=== PATIENT | male | born 1955 | race Caucasian/White ===

== ENCOUNTER 2016-06-10 11:12 | Inpatient (IN) ==
--- NOTE | 2016-06-10 11:46 | PROVIDER DOCUMENTATION ---
HPI-Musculoskeletal Pain/Inj - GENERAL Source: patient, family - HX OF PRESENT ILLNESS-MUSKULOSKELTAL Quality of Pain: reports: aching Severity in ED: moderate Onset/Duration: 1 week ago Timing: still present Any recent injury?: No Locality of Occurance: Home Similar Symptoms Previously?: Yes Recently seen or treated by another doctor?: Yes <Amanda Cruz - Last Filed: 06/10/16 11:41> <Karyn Monique - Last Filed: 06/10/16 13:55> - GENERAL Chief Complaint: Extremity Pain Stated Complaint: POSS BLOOD CLOT Time Seen by Provider: 06/10/16 11:25 - HX OF PRESENT ILLNESS-MUSKULOSKELTAL Nature of Presenting Problem: Reports are from [facility] and are here for 3 months with work.Pt reports before coming her was diagnosed with DVT in right posterior knee and PE in left lung was given heparin and Eloquis and released reports taking eloquis for past 7 day twice a day and states was told if pt had leg swelling,tenderness,redness, or sob to return to er. Pt reports on his way to [place] they stopped about every 1.5 hour so he could get out and walk around. pt has Protein S Deficiency. Pt reports has had right leg swelling and pain x 1 day, Denies cp, sob,vomiting,n. (Amanda Cruz) Review of Systems - Adult - REVIEW OF SYSTEMS - ADULT Constitutional: denies: chills, fever, fatique Eyes: reports: no symptoms reported Ears, Nose, Mouth & Throat: reports: no symptoms reported Cardiovascular: denies: chest pain, heart murmur, irregular heart rate, orthopnea Respiratory: denies: cough, shortness of breath, wheezing Gastrointestinal: reports: no symptoms reported Genitourinary: reports: no symptoms reported Musculoskeletal: reports: see HPI. denies: frequent leg cramps, muscle aches, muscle weakness Integumentary: reports: no symptoms reported Neurological: reports: no symptoms reported Psychiatric: reports: no symptoms reported Endocrine: reports: no symptoms reported Hematologic/Lymphatic: reports: no symptoms reported Allergic/Immunologic: reports: no symptoms reported All Other Systems: Reviewed and Negative <Amanda Cruz - Last Filed: 06/10/16 11:41> Past History - Adult - PAST MEDICAL HISTORY-ADULT Review of Records: reports: Nursing Assessment Review Major Childhood Illnesses: reports: denies history Cardiovascular: reports: hyperlipidemia Endocrine/Immune: reports: other (protein s deficiency) - IMMUNIZATION STATUS Childhood Immunizations: See Nurse Assessment Flu Vaccine: See Nurse Assessment - FAMILY HISTORY Family History: reviewed, not pertinent - SOCIAL HISTORY Smoking: denies <Amanda Cruz - Last Filed: 06/10/16 11:41> Physical Exam-Injury Related - Physical Exam-Injury Related Initial Vital Signs Reviewed: Yes General Appearance: appears well, alert, no apparent distress Eyes: PERRL/EOMI, pink conjunctivae Head, Ears, Nose, Mouth & Throat: normocephalic/atraumatic, moist mucous membranes, normal ENT inspection, TMs normal, pharynx normal Neck: non-tender, full range of motion, supple, normal inspection Respiratory: chest non-tender, lungs clear, normal breath sounds, no pleuratic chest pain, no respiratory distress, no accessory muscle use Cardiovascular: normal peripheral pulses, regular rate, rhythm, no edema, no gallop, no JVD, no murmur Abdominal Exam: normal bowel sounds, non tender, soft, no organomegaly, no pulsatile mass Lymphatic: no adenopathy Back Exam: normal inspection, no CVA tenderness, no vertebral tenderness Extremity: normal range of motion, normal gait, normal inspection, no pedal edema, normal capillary refill, pelvis stable, swelling (right calf), tenderness (right posterior knee and calf) Integumentary: normal color, warm/dry Neurologic: lidar scientist II-XII nml as tested, no motor/sensory deficits Psych/Mental Status: AL, normal mood/affect, normal thought content, normal thought process, oriented x 3 <Amanda Cruz - Last Filed: 06/10/16 11:41> Progress <Amanda Cruz - Last Filed: 06/10/16 11:41> - CONSULTS/PCP/HOSPITALIST Notification Time Discussed: 13:53 Reason/Comments: Admit to Dr. Mills Consult Disposition: Admit <Karyn Monique X - Last Filed: 06/10/16 13:55> - PLAN OF CARE/RESULTS Progress/Plan/Lab Results: Orders Category Date Time Status US [Venous U/S Right Leg] [CV] Stat Ther 06/10/16 11:35 Ordered Vital Signs - 24 hr 06/10/16 11:19 Temperature 97 F L Pulse Rate 83 Respiratory 18 Rate Blood Pressure 150/82 O2 Sat by Pulse 97 Oximetry (Amanda Cruz) Laboratory Results - last 24 hr 06/10/16 06/10/16 06/10/16 13:07 13:07 13:07 WBC 7.50 RBC 4.77 Hgb 13.7 L Hct 42.4 MCV 88.9 MCH 28.7 MCHC 32.3 L RDW Std Deviation 12.9 Plt Count 321 MPV 10.3 Immature Gran % (Auto) 0.3 Neut % (Auto) 56.9 Lymph % (Auto) 30.1 [place] % (Auto) 6.8 Eos % (Auto) 4.7 Baso % (Auto) 1.2 H Immature Gran # (Auto) 0.02 Neut # (Auto) 4.27 Lymph # (Auto) 2.26 [place] # (Auto) 0.51 Eos # (Auto) 0.35 Baso # (Auto) 0.09 PT INR APTT (Factor Assay) Sodium 138 Potassium 4.2 Chloride 102 Carbon Dioxide 25 Anion Gap 10 BUN 16 Creatinine 1.2 Estimated GFR/1.73 m2 > 60 BUN/Creatinine Ratio 13 Glucose 103 Calculated Osmolality 277 Calcium 9.7 Total Bilirubin 0.40 AST 29 ALT 58 H Alkaline Phosphatase 123 H Creatine Kinase 96 Troponin T < 0.010 Total Protein 7.5 Albumin 4.2 Globulin 3.0 Albumin/Globulin Ratio 1.0 06/10/16 13:07 WBC RBC Hgb Hct MCV MCH MCHC RDW Std Deviation Plt Count MPV Immature Gran % (Auto) Neut % (Auto) Lymph % (Auto) [place] % (Auto) Eos % (Auto) Baso % (Auto) Immature Gran # (Auto) Neut # (Auto) Lymph # (Auto) [place] # (Auto) Eos # (Auto) Baso # (Auto) PT 14.3 INR 1.08 APTT (Factor Assay) 32.0 Sodium Potassium Chloride Carbon Dioxide Anion Gap BUN Creatinine Estimated GFR/1.73 m2 BUN/Creatinine Ratio Glucose Calculated Osmolality Calcium Total Bilirubin AST ALT Alkaline Phosphatase Creatine Kinase Troponin T Total Protein Albumin Globulin Albumin/Globulin Ratio Vital Signs Temp Pulse Resp BP Pulse Ox 06/10/16 11:19 97 F L 83 18 150/82 97 No Known Allergies Allergy (Verified 06/10/16 11:24) Laboratory 06/10/16 06/10/1617 13:07 13:07 13:07 WBC 7.50 RBC 4.77 Hgb 13.7 L Hct 42.4 MCV 88.9 MCH 28.7 MCHC 32.3 L RDW Std Deviation 12.9 Plt Count 321 MPV 10.3 Immature Gran % (Auto) 0.3 Neut % (Auto) 56.9 Lymph % (Auto) 30.1 [place] % (Auto) 6.8 Eos % (Auto) 4.7 Baso % (Auto) 1.2 H Immature Gran # (Auto) 0.02 Neut # (Auto) 4.27 Lymph # (Auto) 2.26 [place] # (Auto) 0.51 Eos # (Auto) 0.35 Baso # (Auto) 0.09 PT 14.3 INR 1.08 APTT (Factor Assay) 32.0 Sodium Potassium Chloride Carbon Dioxide Anion Gap BUN Creatinine Estimated GFR/1.73 m2 BUN/Creatinine Ratio Glucose Calculated Osmolality Calcium Total Bilirubin AST ALT Alkaline Phosphatase Creatine Kinase Troponin T < 0.010 Total Protein Albumin Globulin Albumin/Globulin Ratio 06/10/16 13:07 WBC RBC Hgb Hct MCV MCH MCHC RDW Std Deviation Plt Count MPV Immature Gran % (Auto) Neut % (Auto) Lymph % (Auto) [place] % (Auto) Eos % (Auto) Baso % (Auto) Immature Gran # (Auto) Neut # (Auto) Lymph # (Auto) [place] # (Auto) Eos # (Auto) Baso # (Auto) PT INR APTT (Factor Assay) Sodium 138 Potassium 4.2 Chloride 102 Carbon Dioxide 25 Anion Gap 10 BUN 16 Creatinine 1.2 Estimated GFR/1.73 m2 > 60 BUN/Creatinine Ratio 13 Glucose 103 Calculated Osmolality 277 Calcium 9.7 Total Bilirubin 0.40 AST 29 ALT 58 H Alkaline Phosphatase 123 H Creatine Kinase 96 Troponin T Total Protein 7.5 Albumin 4.2 Globulin 3.0 Albumin/Globulin Ratio 1.0 Orders Category Date Time Status Saline Loc NOW Care 06/10/16 12:28 Active CBC WITH ELECTRONIC DIFF [HEME] Stat Lab 06/10/16 13:07 Completed CK PROFILE [SP CHEM] Stat Lab 06/10/16 13:07 Completed COMPREHENSIVE METABOLIC PANEL [CHEM] Stat Lab 06/10/16 13:07 Completed PROTIME WITH INR PL [COAG] Stat Lab 06/10/16 13:[address] [COAG] Stat Lab 06/10/16 13:07 Completed TROPONIN T Stat Lab 06/10/16 13:07 Completed 0.9% Sodium Chloride Inj [Ns] 1,000 ml Med 06/10/16 12:28 Discontinued IV 999 mls/hr Enoxaparin [Lovenox] Med 06/10/16 13:46 Discontinued 100 mg SUBQ NOW ONE US [Venous U/S Right Leg] [CV] Stat Ther 06/10/16 11:35 Completed (Karyn Monique) Departure <Amanda Cruz - Last Filed: 06/10/16 11:41> - Departure Time of Disposition Order: 13:53 Certified Medical Emergency: Emergent <Karyn Monique - Last Filed: 06/10/16 13:55> - Departure DIAGNOSIS: DVT (deep venous thrombosis) Qualifiers: DVT location: lower extremity Affected thrombotic vein of extremity: femoral Laterality: right Chronicity: acute Qualified Code(s): I82.411 - Acute embolism and thrombosis of right femoral vein Pulmonary embolism Qualifiers: Pulmonary embolism type: other Chronicity: acute Acute cor pulmonale presence: without acute cor pulmonale Qualified Code(s): I26.99 - Other pulmonary embolism without acute cor pulmonale Disposition: ADMITTED INPATIENT 09 Condition: Stable Attestation - Scribe Verification/Attestation Scribe:: Amanda Cruz Acting as Scribe for:: Karyn Monique Scribe documention review:: This chart was documented by a scribe and accurately reflects the service the provider performed and the decisions made by the provider. <Amanda Cruz - Last Filed: 06/10/16 11:41> Physician Attestation
[2016-06-10] MEDS ORDERED: NS 1,000 ML IV ONE (12:28)
[2016-06-10 13:19] LABS: MANUAL DIFF NEEDED? NO
[2016-06-10 13:28] LABS: BASO% 1.2 % (0.0-0.8); EOS# 0.35 X1000 (0.0-0.7); EOS% 4.7 % (0.0-10.0); HEMATOCRIT 42.4 % (42.0-52.0); HEMOGLOBIN 13.7 g/dL (14.0-18.0); IMM GRAN# 0.02 X1000 (0.0-0.04); IMM GRAN% 0.3 % (0.0-0.5); LYMPH# 2.26 X1000 (1.2-3.4); LYMPH% 30.1 % (20.5-51.1); MCH 28.7 PG (27-31); MCHC 32.3 g/dL (33-37); MCV 88.9 FL (81-99); MONO# 0.51 X1000 (0.11-0.59); MONO% 6.8 % (1.7-9.3); MPV 10.3 FL (7.4-10.4); NEUT% 56.9 % (42.2-75.2); PLT 321 X1000 (130-400); RBC 4.77 XMIL (4.7-6.1)
[2016-06-10 13:38] LABS: INR 1.08 (0.86-1.15); PROTIME 14.3 Seconds (12.1-15.5)
[2016-06-10 13:40] LABS: AGAP 10; ALBUMIN 4.2 g/dL (3.5-5.0); ALKALINE PHOSPHATASE 123 U/L (32-122); BUN 16 mg/dL (8-22); CALCIUM 9.7 mg/dL (8.8-10.2); CHLORIDE 102 mmol/L (98-107); CK PROFILE 96 U/L (24-204); COSMO 277; GOT 29 U/L (10-34); GPT 58 U/L (10-44); POTASSIUM 4.2 mmol/L (3.5-5.1); SODIUM 138 mmol/L (136-145); TCO2 25 mmol/L (25-35); TOTAL PROTEIN 7.5 g/dL (6.3-8.3)
[2016-06-10] MEDS ORDERED: LOVENOX SUBQ ONE (13:46)
[2016-06-11] MEDS: PROTONIX PO SCH (06:02)
[2016-06-11 06:28] LABS: HEMATOCRIT 41.3 % (42.0-52.0); HEMOGLOBIN 13.4 g/dL (14.0-18.0); MCH 28.8 PG (27-31); MCHC 32.4 g/dL (33-37); MCV 88.6 FL (81-99); MPV 10.5 FL (7.4-10.4); RBC 4.66 XMIL (4.7-6.1)
[2016-06-11 06:43] LABS: AGAP 10; BUN 14 mg/dL (8-22); CALCIUM 9.3 mg/dL (8.8-10.2); CHLORIDE 104 mmol/L (98-107); COSMO 275; POTASSIUM 4.1 mmol/L (3.5-5.1); SODIUM 137 mmol/L (136-145); TCO2 23 mmol/L (25-35)
--- NOTE | 2016-06-11 07:10 | Extremity Venous Study ---
PROCEDURE NAME: Venous U/S Right Leg - 06/10/2016 VENOUS ULTRASOUND OF THE RIGHT LEG: FINDINGS: There is incompressible thrombosis of the proximal femoral vein with complete occlusion to color Doppler flow present in the midfemoral vein and extending into the popliteal and calf vessels. No evidence of superficial venous thrombosis is present. There are no previous studies. IMPRESSION: Deep venous thrombosis in the femoral vein becoming occlusive in the distal femoral vein and extending caudally.
[2016-06-11] MEDS ORDERED: COUMADIN PO ONE (07:49)
[2016-06-11] MEDS ORDERED: FISH OIL CONCENTRATE PO SCH (09:00)
[2016-06-11] MEDS: PROSCAR PO SCH (09:21)
[2016-06-11] MEDS: CALTRATE 600 PO SCH (09:21)
[2016-06-11] MEDS: FLOMAX PO SCH (09:22)
[2016-06-11] MEDS: FISH OIL CONCENTRATE PO SCH (09:24)
[2016-06-11] MEDS ORDERED: TYLENOL PO ONE (15:29)
[2016-06-11] MEDS ORDERED: COUMADIN PO SCH (21:00)
[2016-06-12] MEDS: PROTONIX PO SCH (06:05)
[2016-06-12 06:06] LABS: HEMATOCRIT 42.7 % (42.0-52.0); HEMOGLOBIN 14.1 g/dL (14.0-18.0); MCH 29.2 PG (27-31); MCV 88.4 FL (81-99); MPV 10.3 FL (7.4-10.4); RBC 4.83 XMIL (4.7-6.1)
[2016-06-12 06:32] LABS: AGAP 10; ALBUMIN 3.9 g/dL (3.5-5.0); ALKALINE PHOSPHATASE 118 U/L (32-122); BUN 15 mg/dL (8-22); CALCIUM 9.6 mg/dL (8.8-10.2); CHLORIDE 103 mmol/L (98-107); COSMO 274; GOT 18 U/L (10-34); GPT 37 U/L (10-44); INR 1.07 (0.86-1.15); POTASSIUM 4.4 mmol/L (3.5-5.1); PROTIME 14.2 Seconds (12.1-15.5); SODIUM 136 mmol/L (136-145); TCO2 24 mmol/L (25-35); TOTAL PROTEIN 7.1 g/dL (6.3-8.3)
[2016-06-12] MEDS ORDERED: COUMADIN PO SCH (07:26)
[2016-06-12] MEDS: PROSCAR PO SCH (09:32)
[2016-06-12] MEDS: FLOMAX PO SCH (09:32)
[2016-06-12] MEDS: LOVENOX SUBQ SCH ×2 (09:32→20:29)
[2016-06-12] MEDS: FISH OIL CONCENTRATE PO SCH (09:32)
[2016-06-12] MEDS: CALTRATE 600 PO SCH (09:32)
[2016-06-12] MEDS: TYLENOL PO PRN ×2 (09:37→15:44)
--- NOTE | 2016-06-12 12:10 | PROGRESS NOTE ---
DATE: 06/12/2016 SUBJECTIVE: The patient is without complaints today. He is asking if he can begin getting out of bed. Denies any chest pain or palpitations. Denies any fevers, chills, cough or congestion. Denies any shortness of breath. OBJECTIVE: Vital signs: Temperature is 97, pulse 58, respiratory rate 18, blood pressure 122/83, saturation is 98% on room air. General: The patient is well developed and well nourished, in no respiratory distress. He is awake and alert. Neck: Supple. Cardiovascular: Regular rate. Chest: Relatively clear. Abdomen: Soft, nondistended. Extremities: Moves all extremities. Neurologic: No focal changes. Skin: Warm and dry, no rashes. DIAGNOSTIC DATA: CBC normal. INR is 1.07. ASSESSMENT: Deep venous thrombosis. The patient has a recent history of DVT and apparently was treated in the hospital with heparin and then placed on Eliquis. He has traveled to [place] from his home residence for work. He started having increased swelling and pain. It was felt as though his DVT has extended. We were able to finally get results from his previous ultrasound which certainly appears that this has worsened, as he now has a DVT in the femoral vein. PLAN: We will continue the patient on Coumadin and Lovenox at 1 mg/kg q.12. Hopefully home in a few days.
[2016-06-12] MEDS: COUMADIN PO SCH (20:29)
[2016-06-13] MEDS: PROTONIX PO SCH (06:08)
[2016-06-13] MEDS: PROSCAR PO SCH (09:25)
[2016-06-13] MEDS: FISH OIL CONCENTRATE PO SCH (09:25)
[2016-06-13] MEDS: FLOMAX PO SCH (09:25)
[2016-06-13] MEDS: CALTRATE 600 PO SCH (09:25)
[2016-06-13] MEDS: LOVENOX SUBQ SCH ×2 (09:26→20:44)
[2016-06-13 10:41] LABS: INR 1.33 (0.86-1.15); PROTIME 16.8 Seconds (12.1-15.5)
--- NOTE | 2016-06-13 12:44 | PROGRESS NOTE ---
DATE: 06/13/2016 SUBJECTIVE: The patient is without complaints. He is able to get out bed. He denied any chest pain or palpitations. No shortness of breath. Denies any GI or issues. OBJECTIVE: Temperature is 98, pulse 64, respiratory rate 15, blood pressure 124/67, saturation 96% on room air. General: No real respiratory distress. He is awake, alert and oriented. Neck: Supple. Cardiovascular: Regular rate. Chest: Relatively clear. Abdomen: Soft, nondistended. Extremities: Moves all extremities. Neurologic: No focal changes. Skin: Warm and dry, no rashes. ASSESSMENT: 1. Deep venous thrombosis with extension, failed Eliquis. 2. Benign prostatic hypertrophy. 3. Chronic reflux. PLAN: We will continue the patient on his home medications. We will continue Coumadin. Further orders as needed. We are waiting for Coumadin to get greater than 2.0.
[2016-06-13] MEDS: COUMADIN PO SCH (20:45)
[2016-06-14] MEDS: PROTONIX PO SCH (06:11)
[2016-06-14 07:05] LABS: INR 1.84 (0.86-1.15); PROTIME 21.4 Seconds (12.1-15.5)
[2016-06-14] MEDS: PROSCAR PO SCH (08:41)
[2016-06-14] MEDS: FISH OIL CONCENTRATE PO SCH (08:41)
[2016-06-14] MEDS: FLOMAX PO SCH (08:41)
[2016-06-14] MEDS: CALTRATE 600 PO SCH (08:41)
[2016-06-14] MEDS: LOVENOX SUBQ SCH ×2 (08:42→21:12)
--- NOTE | 2016-06-14 09:35 | PROGRESS NOTE ---
DATE: 06/14/2016 SUBJECTIVE: Patient without new complaints. OBJECTIVE: General: Patient is well developed, well nourished. She is in no respiratory distress. Vital Signs: Reviewed, stable. Temperature 97 degrees, pulse 70, respiratory rate 10, BP 123/84. CV: Regular rate. Chest: Relatively clear. ASSESSMENT: Deep venous thrombosis with extension, failed Eliquis. INR currently at 1.85. We will continue Coumadin and Lovenox until INR is greater than 2. Hopefully home in 1-2 days.
[2016-06-14] MEDS: COUMADIN PO SCH (21:12)
[2016-06-15] MEDS: PROTONIX PO SCH (06:10)
[2016-06-15 07:05] LABS: INR 2.39 (0.86-1.15); PROTIME 26.1 Seconds (12.1-15.5)
[2016-06-15] MEDS: LOVENOX SUBQ SCH (10:03)
[2016-06-15] MEDS: FLOMAX PO SCH (10:03)
[2016-06-15] MEDS: CALTRATE 600 PO SCH (10:03)
[2016-06-15] MEDS: PROSCAR PO SCH (10:03)
[2016-06-15] MEDS: FISH OIL CONCENTRATE PO SCH (10:03)
--- NOTE | 2016-06-15 16:04 | DISCHARGE SUMMARY ---
ADMISSION DATE: 06/10/2016 DISCHARGE DATE: 06/15/2016 DISCHARGE DIAGNOSIS: Deep vein thrombosis, failing outpatient therapy. HISTORY AND HOSPITAL COURSE: Briefly, the patient was admitted I think on the . He has a recent history of DVT and had been placed on Eliquis. He started having increasing pain and swelling and the DVT was felt to have extended. Doppler on the showed femoral vein occlusive in the distal femoral vein. He was placed on Lovenox and Coumadin and clinically improved, slowly. Since he failed Eliquis therapy we had to use Coumadin. On the his INR had increased to 2.39 and was stable and he was felt stable for discharge. DISCHARGE MEDICATIONS: Finasteride 5 daily, Flomax 0.4 daily, [place]-3 fatty oil daily, Os-Neftaly 500 daily, Protonix 40 daily, Coumadin 5 daily. DISCHARGE INSTRUCTIONS: He will need a follow up INR in 72 hours and then after that 1-2 weeks. Call for setting up with a PCP. At this point we will try to refer him to YULIET Padgett, or Dr. Mills. He is only going to be in town for few months and just needs to be managed here closely. Return for any worsening pain, swelling, chest pain, shortness of breath, or any significant bleeding from bowel or bladder. TIME SPENT: Greater than 30 minute discharge.
[2016-06-15 16:15] VITALS: BP 123/67
--- NOTE | 2016-07-05 18:17 | HISTORY AND PHYSICAL ---
CHIEF COMPLAINT: DVT right lower extremity with increased swelling. HISTORY OF PRESENT ILLNESS: This is a 60-year-old, male with a history of protein S deficiency and recently diagnosed right lower extremity DVT and saddle embolus. He presented to the emergency room complaining of increasing right lower extremity edema and pain. He denied chest pain or palpitations. The patient states he does have a history of protein S deficiency. This was diagnosed quite some time ago after one of his siblings had a PE. He had no problems until it was either May 29 or May 30 when he had a sudden onset of chest pain and shortness of breath. This was in [place], [place]. He presented to the emergency room and was found to have a saddle pulmonary embolus. In talking to the patient it appears he had intracoronary tPA. It appears he was taken to catheterization lab and given tPA for this embolus. This was followed by IV heparin transitioned to subcutaneous heparin transitioned to Eliquis 10 mg b.i.d. for 2 weeks. He just transitioned to Eliquis 5 mg b.i.d. prior to coming to the hospital. He also was known to have a right lower extremity DVT. He stated he was discharged from the hospital 3 days prior to admission and at that time he drove from [place], [place] to [place], [place]. He did state that he got out about every [id number] to 2 hours to walk around. He arrived the night prior to his admission. He worked all day. He stated through the day his leg he had increasing edema. He developed pain that he said was becoming unbearable, therefore, he presented to the emergency room. PAST MEDICAL HISTORY: Protein S deficiency, saddle embolus, right lower extremity DVT, hyperlipidemia. SOCIAL HISTORY: He denies alcohol, tobacco, or illicit drug use. ALLERGIES: No known drug allergies. HOME MEDICATIONS: Eliquis 5 mg b.i.d., [place]-3 daily, finasteride 5 daily, Flomax 0.4 daily, Os- Neftaly 500 daily. REVIEW OF SYSTEMS: A 14 point review of systems is discussed with patient with pertinent positives as stated in HPI. He denied chest pain, palpitations, syncope, near syncope, dizziness, any PND, orthopnea, shortness of breath, dyspnea on exertion, cough, fever, chills, nausea, vomiting, diarrhea, constipation, black or bloody vomitus, black or bloody stools, any left lower extremity pain. PHYSICAL EXAMINATION: GENERAL: This is a 60-year-old male who is sitting up in the bed in no distress. VITAL SIGNS: Blood pressure is 139/81 with a heart rate of 68, respirations 18, temperature 98.8 degrees with oxygen saturations of 98% on room air. HEENT: Head is normocephalic, atraumatic. Pupils equal, round, reactive to light. EOMs are intact. Sclerae are anicteric. Mucous membranes are moist. NECK: Supple with trachea midline. CARDIOVASCULAR: Regular rate and rhythm. S1 and S2 are appreciated. PULMONARY: Breath sounds are clear. Chest rises and falls symmetrically with respiration. No increased work of breathing noted. GASTROINTESTINAL: Abdomen is soft, nontender, nondistended with bowel sounds in all 4 quadrants. BACK: No CVAT. No spine tenderness. EXTREMITIES: No clubbing, cyanosis, or edema to upper extremities or left lower extremity. Right lower extremity is tight with edema to just below the knee to the foot. Pulses are palpable. NEUROLOGIC: He is alert and oriented x3 with cranial nerves 2-12 grossly intact. DIAGNOSTICS: Lower extremity Doppler reveals a DVT in the right femoral vein becoming occlusive in the distal femoral vein and extending caudally. ASSESSMENT: 1. Saddle embolus status post 1 month. 2. Right lower extremity DVT with extension. Failed Eliquis. 3. Benign prostatic hypertrophy. 4. Chronic reflux. PLAN: The patient will be admitted to the hospital. He will be placed on telemetry. We will identify and continue his home medications. We will stop Eliquis and transition over to Coumadin watching INRs. We will give Lovenox 1 mg/kg q.12 hours until his INR reaches 2. We will obtain records from [facility] for GI prophylaxis. We will give Protonix. Dictated by YULIET Lion for Carlos Mills MD
--- NOTE | 2016-07-27 02:24 | DISCHARGE SUMMARY ---
ADMISSION DATE: 06/10/2016 DISCHARGE DATE: 06/15/2016 ADDENDUM REPORT ADMITTING DIAGNOSES: 1. Deep venous thrombosis. 2. Pulmonary embolism. He had failed Eliquis and was placed on Lovenox and Coumadin. The patient had DVT and PE. The PE was about a month old. Clinically, it was felt to be VTE/PE.
== END 2016-06-15 18:18 | disposition home or self-care (01) | DRG 299 ==
LOC: P.ED 11:12 → P.MEDSURG 13:44 → OBSVTOIN 13:44
PROVIDERS: ATTEND Internal Medicine
PROC: 3E013GC Introduction of Other Therapeutic Substance into Subcutaneous Tissue, Percutaneous Approach (ICD-10-PCS; principal; 2016-06-10)
DX: I82.411 Acute embolism and thrombosis of right femoral vein (principal); I26.99 Other pulmonary embolism without acute cor pulmonale; I82.431 Acute embolism and thrombosis of right popliteal vein; N40.0 Benign prostatic hyperplasia without lower urinary tract symptoms; K21.9 Gastro-esophageal reflux disease without esophagitis; Z79.02 Long term (current) use of antithrombotics/antiplatelets; Z79.899 Other long term (current) drug therapy
CPT/HCPCS: 36415; 80048; 80053; 82550; 84484; 85025; 85027; 85610; 85730; 93971; 96360; J1650; J7030; S0138